=== PATIENT | male | born 1980 | race Caucasian/White ===

== ENCOUNTER → 2022-08-02 08:07 | Outpatient (BNVA) | payer MEDICARE, MEDICAID, SELFPAY | PROVIDERS: PCP Family Medicine; Visit Provider Physician Assistant | DX: Z01.818 Encounter for other preprocedural examination (principal); E66.01 Morbid (severe) obesity due to excess calories; F31.9 Bipolar disorder, unspecified; E03.9 Hypothyroidism, unspecified; K21.9 Gastro-esophageal reflux disease without esophagitis; I10 Essential (primary) hypertension; Z68.41 Body mass index [BMI] 40.0-44.9, adult | CPT/HCPCS: 99202 ==

== ENCOUNTER 2022-08-25 09:15 | Outpatient (REF) | payer MEDICARE, MEDICAID, SELFPAY ==
[2022-08-25 10:18] LABS: MANUAL DIFF FLAG NO
[2022-08-25 11:01] LABS: Basophils Absolute Auto 0.1 X10*3/uL (0.0-0.2); Eosinophils Absolute Auto 0.1 X10*3/uL (0.0-0.4); Eosinophils Percent Auto 1.9 % (0-4); Hematocrit 47.8 % (42.0-52.0); Hemoglobin 16.3 g/dl (14.0-18.0); Imm Gran Abs Auto 0.02 X10*3/uL (0.00-0.03); Imm Gran Pct Auto 0.4 % (0.0-0.4); Lymphocytes Absolute Auto 2.2 X10*3/uL (1.2-4.9); Lymphocytes Percent Auto 41.3 % (20-40); Mean Corpuscular HGB Conc 34.1 g/dl (31.0-36.0); Mean Corpuscular Volume 85.1 fL (80.0-98.0); Mean Platelet Volume 9.1 fL (9.4-12.4); Monocytes Absolute Auto 0.3 X10*3/uL (0.1-1.2); Monocytes Percent Auto 5.9 % (2-11); Neutrophils Absolute Auto 2.6 x10*3/uL (2.0-8.3); Neutrophils Percent Auto 49.5 % (45-73); Platelet Count 240 X10*3/uL (160-400); Red Blood Count 5.62 X10*6/uL (4.60-5.80); Red Cell Distribution Width 12.7 % (11.0-16.0); White Blood Count 5.2 X10*3/uL (4.8-10.8)
[2022-08-25 11:34] LABS: Estimated Average Glucose 103 mg/dL; Hemoglobin A1c % 5.2 %
[2022-08-25 12:02] LABS: Alanine Aminotransferase 52 U/L (0-40); Albumin Level 4.7 g/dL (3.5-5.0); Alkaline Phosphatase 41 U/L (39-117); Anion Gap 11 (12-20); Aspartate Amino Transferase 26 U/L (5-37); Bilirubin Total 0.8 mg/dL (0.0-1.0); Blood Urea Nitrogen 11 mg/dL (9-16); Calcium 9.9 mg/dL (8.4-10.2); Carbon Dioxide 27 mmol/L (22-29); Chloride 100 mmol/L (96-108); Cholesterol 166 mg/dL; Estimated Glomerular Filt Rate > 60; Ferritin 208 ng/mL (20-250); Glucose Random 91 mg/dL (60-115); HDL Cholesterol 38 mg/dL; Insulin 22 uU/mL (2-29); Iron 154 mcg/dL (45-160); LDL Cholesterol Calculated 93 mg/dl; Percent Iron Saturation 37 % (15-50); Potassium 4.4 mmol/L (3.3-5.1); Sodium 134 mmol/L (135-145); TSH reflex Free T4 1.11 uIU/mL (0.32-4.0); Total Iron Binding Capacity 411 mcg/dL (228-428); Total Protein 7.3 g/dL (6.5-8.0); Triglycerides 176 mg/dL; Unsaturated Iron Binding 257 ug/dL; Vitamin D 25-OH Total 31.6 ng/mL (>30)
[2022-08-25 12:12] LABS: Folate 17.2 ng/mL (> or = 4.0); Vitamin B12 518 pg/mL (200-900)
[2022-08-28 15:39] LABS: Calcium (PTHI) 9.9 mg/dL (8.6-10.3); PTHI 44 pg/mL (16-77)
[2022-08-30 14:53] LABS: Vitamin B1 15 nmol/L (8-30)
[2022-08-31 06:13] LABS: Zinc 85 mcg/dL (60-130)
[2022-08-31 09:28] LABS: Vitamin A 67 mcg/dL (38-98)
== END 2022-08-25 09:16 | disposition home or self-care (01) ==
LOC: HO.LAB 09:15
PROVIDERS: PCP Family Medicine; Visit Provider Physician Assistant
DX: Z01.818 Encounter for other preprocedural examination (principal); E66.01 Morbid (severe) obesity due to excess calories; F31.9 Bipolar disorder, unspecified; Z90.3 Acquired absence of stomach [part of]
CPT/HCPCS: 36415; 80053; 80061; 82306; 82607; 82728; 82746; 83036; 83525; 83540; 83970; 84425; 84443; 84590; 84630; 85025; 86140; 99212

== ENCOUNTER 2022-09-15 08:34 | Outpatient (REF) | payer MEDICARE, MEDICAID, SELFPAY ==
--- NOTE | ~2022-09-15 | FL_ITS ---
EXAMINATION: XR FLUOROSCOPY UPPER GI CLINICAL INFORMATION: Morbid obesity due to excess calories. COMPARISON: None TECHNIQUE: Fluoroscopic assessment of the upper GI tract was performed in various upright and supine/prone obliquities utilizing thin density contrast only given the patient's prior history of bariatric surgery. FINDINGS: The esophagus was normal in course, caliber, and contour. There was normal distensibility with no fixed segment of narrowing. No focal mucosal abnormality was identified. No significant esophageal dysmotility was observed. Contrast passed freely across the gastroesophageal junction into the stomach. No significant hiatal hernia. Patient is status post gastric sleeve. There was expected distensibility of the stomach with no focal abnormality identified. There was prompt gastric emptying into the duodenum which demonstrated a normal appearance. No gastroesophageal reflux was observed. FLUOROSCOPY TIME: 1.2 minutes DOSE AREA PRODUCT: 64.5 Gy-cm2 (padilla-centimeter squared) FL/FL upper GI w air IMPRESSION: Status post previous sleeve gastrectomy. Otherwise unremarkable upper GI examination.
== END 2022-09-15 08:35 | disposition home or self-care (01) ==
LOC: HO.XRAY 08:34
PROVIDERS: PCP Family Medicine; Visit Provider Physician Assistant
DX: E66.01 Morbid (severe) obesity due to excess calories (principal); K21.9 Gastro-esophageal reflux disease without esophagitis; Z90.3 Acquired absence of stomach [part of]
CPT/HCPCS: 74246

== ENCOUNTER → 2022-09-16 11:19 | Outpatient (BNVA) | payer MEDICARE, MEDICAID, SELFPAY | PROVIDERS: PCP Family Medicine; Visit Provider Physician Assistant | DX: E66.01 Morbid (severe) obesity due to excess calories (principal); Z68.41 Body mass index [BMI] 40.0-44.9, adult; Z90.3 Acquired absence of stomach [part of]; Z79.899 Other long term (current) drug therapy | CPT/HCPCS: 99212 ==

== ENCOUNTER → 2022-10-06 11:23 | Outpatient (BNVA) | payer MEDICARE, MEDICAID, SELFPAY | PROVIDERS: PCP Family Medicine; Visit Provider Physician Assistant | DX: E66.01 Morbid (severe) obesity due to excess calories (principal); Z68.41 Body mass index [BMI] 40.0-44.9, adult; F31.9 Bipolar disorder, unspecified; Z98.84 Bariatric surgery status | CPT/HCPCS: Q3014 ==

== ENCOUNTER → 2022-10-11 13:30 | Outpatient (BNVA) | payer MEDICARE, MEDICAID, SELFPAY | PROVIDERS: Visit Provider Counselor Mental Health | DX: F31.9 Bipolar disorder, unspecified (principal); E66.01 Morbid (severe) obesity due to excess calories; Z90.3 Acquired absence of stomach [part of] | CPT/HCPCS: 90791 ==

== ENCOUNTER → 2022-10-14 14:16 | Outpatient (BNVA) | payer MEDICARE, MEDICAID, SELFPAY | PROVIDERS: PCP Family Medicine; Visit Provider Dietitian, Registered | DX: E66.01 Morbid (severe) obesity due to excess calories (principal) | CPT/HCPCS: 97802 ==

== ENCOUNTER → 2022-10-24 11:00 | Outpatient (BNVA) | payer MEDICARE, MEDICAID, SELFPAY | PROVIDERS: PCP Family Medicine; Visit Provider Physician Assistant | DX: E66.01 Morbid (severe) obesity due to excess calories (principal); F31.9 Bipolar disorder, unspecified; Z98.84 Bariatric surgery status; Z90.3 Acquired absence of stomach [part of] | CPT/HCPCS: Q3014 ==

== ENCOUNTER 2023-03-01 09:28 | Outpatient (REF) | payer MEDICARE, MEDICAID, SELFPAY ==
--- NOTE | ~2023-03-01 | XR_ITS ---
EXAMINATION: XR CHEST CLINICAL INFORMATION: Obesity COMPARISON: None available. TECHNIQUE: 2 views of the chest were obtained. FINDINGS: No significant abnormality is noted involving the heart, lungs, mediastinum, bony thorax or soft tissues. XR/XR chest 2V IMPRESSION: Unremarkable examination.
--- NOTE | 2023-03-01 10:40 | ECG_ITS ---
Test Reason : OBESITY Blood Pressure : / mmHG Vent. Rate : 067 BPM Atrial Rate : 067 BPM P-R Int : 156 ms QRS Dur : 096 ms QT Int : 408 ms P-R-T Axes : 002 061 025 degrees QTc Int : 431 ms Normal sinus rhythm Normal ECG No previous ECGs available Referred By: Sandra Newell Electronically Signed By:Tay Lord
== END 2023-03-01 09:29 | disposition home or self-care (01) ==
LOC: HO.XRAY 09:28
PROVIDERS: PCP Family Medicine; Visit Provider Physician Assistant
DX: E66.01 Morbid (severe) obesity due to excess calories (principal); I10 Essential (primary) hypertension; F31.9 Bipolar disorder, unspecified; Z90.3 Acquired absence of stomach [part of]
CPT/HCPCS: 71046; 93005; 99212

== ENCOUNTER → 2023-03-06 11:15 | Outpatient (BNVA) | payer MEDICARE, MEDICAID, SELFPAY | PROVIDERS: PCP Family Medicine; Visit Provider Counselor Mental Health ==

== ENCOUNTER → 2023-03-15 08:53 | Outpatient (BNVA) | payer MEDICARE, MEDICAID, SELFPAY | PROVIDERS: PCP Family Medicine; Visit Provider Physician Assistant ==

== ENCOUNTER → 2023-03-16 07:51 | Outpatient (BNVA) | payer MEDICARE, MEDICAID, SELFPAY | PROVIDERS: PCP Family Medicine; Visit Provider Physician Assistant | DX: Z11.0 Encounter for screening for intestinal infectious diseases (principal) | CPT/HCPCS: 83013; 99211 ==

== ENCOUNTER 2023-03-16 18:36 | Outpatient (REF) | payer MEDICARE, MEDICAID, SELFPAY ==
[2023-03-20 11:38] LABS: H Pylori Breath Test Negative (Negative)
== END 2023-03-16 18:37 | disposition home or self-care (01) ==
LOC: HO.LNP 18:36
PROVIDERS: Visit Provider Physician Assistant
DX: Z13.89 Encounter for screening for other disorder (principal)
CPT/HCPCS: 83013

== ENCOUNTER → 2023-03-27 09:54 | Outpatient (BNVA) | payer MEDICARE, MEDICAID, SELFPAY | PROVIDERS: PCP Family Medicine; Visit Provider Counselor Mental Health ==

== ENCOUNTER 2023-04-07 08:07 | Outpatient (REF) | payer MEDICARE, MEDICAID, SELFPAY ==
--- NOTE | ~2023-04-07 | US_ITS ---
EXAMINATION: US COMPLETE ABDOMEN WITH LIVER ELASTOGRAPHY CLINICAL INFORMATION: Obesity. COMPARISON: None available. TECHNIQUE: Real-time imaging of the abdominal viscera. Noninvasive ultrasound liver fibrosis assessment is performed using [employer] Elast[employer] point quantification shear wave elastography (2D-SWE) with a C5-2 MHz transducer. Multiple elastography samples are obtained. FINDINGS: PANCREAS: Largely obscured by overlapping bowel gas. ABDOMINAL AORTA: The proximal, middle, and distal aortic segments are normal in caliber. INFERIOR VENA CAVA: Visualized portions are normal. LIVER: The liver demonstrates normal size, contour and increased echogenicity. No focal lesion or intrahepatic biliary duct dilatation. The right lobe measures 19.2 cm in length. The left lobe measures 9.2 cm in length. Portal flow is towards the liver (hepatopetal). Shear wave liver elastography median stiffness is 1.54 m/s (reference: normal median stiffness is 1.3 m/s or less). IQR/median stiffness to assess sampling precision is 0.05 (reference: good quality data set is IQR/median stiffness of 0.15 or less). GALLBLADDER: Normal. The gallbladder is physiologically distended without evidence of stones, sludge, polyps, wall thickening or pericholecystic fluid. COMMON BILE DUCT: Normal in caliber measuring 0.3 cm in diameter. RIGHT KIDNEY: At the interpolar aspect, a 7 mm benign, simple exophytic cyst is seen. This requires no imaging follow-up. No hydronephrosis. No renal calculi or focal parenchymal lesions. The kidney measures 11.7 cm in maximum dimension. LEFT KIDNEY: Normal. No hydronephrosis. No renal calculi or focal parenchymal lesions. The kidney measures 11.1 cm in maximum dimension. SPLEEN: Normal. The spleen measures 11.0 cm in maximum dimension. FREE FLUID: None. US/US abdomen comp w elastography IMPRESSION: 1. There is generalized increase in hepatic echotexture, consistent with fatty infiltration or hepatocellular disease. Please correlate clinically. No focal hepatic mass or intrahepatic biliary dilatation is seen. 2. Liver elastography: In the absence of other known clinical signs, measurements rule out compensated advanced chronic liver disease. If there are known clinical signs, further testing may be needed for confirmation. 3. There is hepatomegaly. 4. Technically limited ultrasound examination of the pancreas. REFERENCE: Society of Radiologists in Ultrasound Liver Stiffness Thresholds (2020): LIVER STIFFNESS THRESHOLDS: *Liver Stiffness equal or less than 1.3 m/s: High probability of being normal. *Liver Stiffness less than 1.7 m/s: In the absence of other known clinical signs, rules out compensated advanced chronic liver disease. *Liver Stiffness 1.7-2.1 m/s: Suggestive of compensated advanced chronic liver disease but need further test for confirmation. *Liver Stiffness over 2.1 m/s: Rules in compensated advanced chronic liver disease. *Liver Stiffness over 2.4 m/s: Suggestive of clinically significant portal hypertension. QUALITY OF DATA SET: *IQR/Median value equal or less than 0.15 implies a quality data set. *IQR/Median value over 0.15 implies a poor quality data set. SIGNIFICANT CHANGE FROM PRIOR EXAM: Significant change if liver stiffness measurement is 10% or greater from prior exam. OTHER CONSIDERATIONS: The stage of liver fibrosis may be overestimated in the setting of acute hepatitis, liver inflammation, elevated liver function tests, hepatic vascular congestion, obstructive cholestasis, non-fasting state, and infiltrative diseases such as amyloidosis and lymphoma. In some patients with NAFLD, the liver stiffness thresholds for compensated advanced chronic liver disease may be lower. In causes other than viral hepatitis and NAFLD, liver stiffness thresholds are not well established.
== END 2023-04-07 08:08 | disposition home or self-care (01) ==
LOC: HO.US 08:07
PROVIDERS: PCP Family Medicine; Visit Provider Physician Assistant
DX: E66.01 Morbid (severe) obesity due to excess calories (principal); Z90.3 Acquired absence of stomach [part of]
CPT/HCPCS: 76705; 76981